=== PATIENT | male | born 1965 | race Caucasian/White ===

== ENCOUNTER 2020-05-13 13:46 | Outpatient (REF) | payer MEDICARE, MEDICAID, SELFPAY | END 2020-05-13 13:47 | disposition home or self-care (01) | LOC: HO.LAB 13:46 | PROVIDERS: Visit Provider Internal Medicine | DX: Z20.822 Contact with and (suspected) exposure to COVID-19 (principal) | CPT/HCPCS: 36415; C9803; U0003; U0005 ==

== ENCOUNTER 2020-05-21 14:20 | Outpatient (REF) | payer MEDICARE, MEDICAID, SELFPAY | END 2020-05-21 14:21 | disposition home or self-care (01) | LOC: HO.LAB 14:20 | PROVIDERS: Visit Provider Internal Medicine | DX: Z20.822 Contact with and (suspected) exposure to COVID-19 (principal) | CPT/HCPCS: 36415; C9803; U0003; U0005 ==